=== PATIENT | female | born 1980 | race African-American/Black ===

== ENCOUNTER 2016-09-06 22:39 | Emergency (ER) | payer OTHER ==
[~2016-09-06] VITALS: Ht 180.3 cm; Wt 124.7 kg
[2016-09-06 22:42] VITALS: BP 139/72
--- NOTE | 2016-09-06 23:02 | NUR ---
PT TAKEN TO OF2
--- NOTE | 2016-09-06 23:39 | NUR ---
Dr. Simpson evaluating patient
[2016-09-06] MEDS: KETOROLAC 60 MG/2 ML VIAL IM ONE (23:49)
--- NOTE | 2016-09-06 23:53 | NUR ---
PT TAKEN TO XRAY
--- NOTE | 2016-09-07 00:07 | NUR ---
PT RETURN FROM XRAY
[2016-09-07] MEDS: fentaNYL 0.05 MG/ML VIAL IM ONE (00:29)
[2016-09-07 00:50] VITALS: BP 127/63
--- NOTE | 2016-09-07 00:50 | NUR ---
Patient discharged with v/s stable. Written and verbal after care instructions given and explained. Patient alert, oriented and verbalized understanding of instructions. Ambulatory with steady gait. All questions addressed prior to discharge. ID band removed. Patient advised to follow up with PMD. Rx of Motrin, Prednisone, and Tramadol given. Patient educated on indication of medication including possible reaction and side effects. Opportunity to ask questions provided and answered.
== END 2016-09-07 00:50 | disposition home or self-care (01) ==
LOC: MED 22:39
DX: M54.5 Low back pain (principal)
CPT/HCPCS: 72100; 81025; 96372; 99284; J1885; J3010

== ENCOUNTER 2018-03-23 09:28 | Emergency (ER) | payer OTHER ==
[~2018-03-23] VITALS: Ht 180.3 cm; Wt 122.5 kg
--- NOTE | 2018-03-23 09:36 | NUR ---
PT AMBULATES TO BED 7
[2018-03-23 09:39] VITALS: BP 120/97
--- NOTE | 2018-03-23 09:47 | NUR ---
C/O NON PRODUCTIVE COUGH, UPPER BACK PAIN, FATIGUE X 1 WK. NO ACCESSORY MUSCLE USE NOTED. PATIENT STATES PAIN OF 6/10 AT THIS TIME. PATIENT POSITIONED FOR COMFORT; HOB ELEVATED; BEDRAILS UP X2; BED DOWN. ER MD MADE AWARE OF PT STATUS.
[2018-03-23] MEDS ORDERED: ALBUTEROL SULFATE/IPRATROPIU 3 ML SOL IH ONE (09:50)
[2018-03-23] MEDS ORDERED: cefTRIAXone 1,000 MG in LIDOCAINE 1% ***ER ONLY *** 2.1 ML IM ONE (09:50)
--- NOTE | 2018-03-23 09:52 | NUR ---
Patient being evaluated by DR TORRES at bedside.
--- NOTE | 2018-03-23 10:01 | NUR ---
RT AT BEDSIDE
[2018-03-23] MEDS ORDERED: KETOROLAC 60 MG/2 ML VIAL IM ONE (10:05)
[2018-03-23] MEDS ORDERED: cefTRIAXone 1,000 MG VIAL ONE (10:13)
[2018-03-23] MEDS ORDERED: LIDOCAINE MPF 1% 5mL VIAL ONE (10:14)
[2018-03-23 10:42] VITALS: BP 120/90
--- NOTE | 2018-03-23 10:42 | NUR ---
Patient discharged with v/s stable. Written and verbal after care instructions given and explained. Patient alert, oriented and verbalized understanding of instructions. Ambulatory with steady gait. All questions addressed prior to discharge. ID band removed. Patient advised to follow up with PMD. Rx of tamiflu, motrin, promethazine & azithromycin given. Patient educated on indication of medication including possible reaction and side effects. Opportunity to ask questions provided and answered.
== END 2018-03-23 10:42 | disposition home or self-care (01) ==
LOC: MED 09:28
DX: J11.1 Influenza due to unidentified influenza virus with other respiratory manifestations (principal); I10 Essential (primary) hypertension; E11.9 Type 2 diabetes mellitus without complications
CPT/HCPCS: 36415; 81025; 87804; 94640; 96372; 99283; J0696; J1885; J2001; J7620

== ENCOUNTER 2018-06-22 23:21 | Emergency (ER) | payer OTHER ==
[~2018-06-22] VITALS: Ht 180.3 cm; Wt 104.3 kg
--- NOTE | 2018-06-22 23:25 | NUR ---
TO BED # 11 AMBULATORY
[2018-06-22 23:26] VITALS: BP 143/90
--- NOTE | 2018-06-22 23:35 | NUR ---
PT BIB SELF C/O LEFT ANKLE PAIN. PT STATES STANDING A LOT TODAY, WHEN SHE TOOK OF THE BRACE AROUND HER LEFT ANKLE SHE FELT HER ANKLE "GIVE OUT", PT STATES SHE BROKE HER LEFT ANKLE 1 YEAR AGO AND WEARS A BRACE DAILY. PT STATES SWELLING AROUND ANKLE IS CHRONIC. PT STATES 4/10 ACHING PAIN TO SITE, RADIATES UP LEFT LEG. --NOTEABLE SWELLING TO LEFT ANKLE, NO REDNESS OR DISCHARGE, CAP REFIL <2. +AROM OF EXTREMITY. PEDIAL PULSES WNL BL. PT AMBULATES W/ STEADY GATE. DENIES FALL, INJURY OR TRAUMA THIS TIME. PMH: HTN
--- NOTE | 2018-06-22 23:36 | NUR ---
X-Ray at bedside.
--- NOTE | 2018-06-22 23:47 | NUR ---
DR. WU AT BEDSIDE FOR EVALUATION.
[2018-06-23 00:03] VITALS: BP 143/90
--- NOTE | 2018-06-23 00:04 | NUR ---
Patient discharged with v/s stable. Written and verbal after care instructions given and explained. Patient verbalized understanding. Ambulatory with crutches . All questions addressed prior to discharge. Advised to follow up with PMD.
== END 2018-06-23 00:04 | disposition home or self-care (01) ==
LOC: MED 23:21
DX: M25.572 Pain in left ankle and joints of left foot (principal); I10 Essential (primary) hypertension
CPT/HCPCS: 73610; 99283; Q0092

== ENCOUNTER 2020-04-18 03:20 | Emergency (ER) | payer OTHER ==
[~2020-04-18] VITALS: Ht 180.3 cm; Wt 117.9 kg
[2020-04-18 03:23] VITALS: BP 123/90
--- NOTE | 2020-04-18 03:23 | NUR ---
TO BED AMBULATORY
--- NOTE | 2020-04-18 03:32 | NUR ---
DR. CASAS AT BEDSIDE FOR EXAM
[2020-04-18] MEDS ORDERED: DEXAMETHASONE 4 MG/ML VIAL IM ONE (04:00)
[2020-04-18] MEDS ORDERED: TETRACAINE HCL/PF 0.5% OPTH 4 ML BTL OP ONE (04:00)
[2020-04-18] MEDS ORDERED: guaiFENesin/CODEINE 100/10MG 5 ML UDC PO ONE (04:00)
[2020-04-18] MEDS ORDERED: ERYTHROMYCIN 0.5% OPTH OINT 1 GM TUBE OP ONE (04:00)
[2020-04-18] MEDS ORDERED: ALBUTEROL HFA MDI 90 MCG/ACTUATION 8 GM INH ONE (04:00)
--- NOTE | 2020-04-18 04:45 | NUR ---
SWABS OBTAINED AND SENT TO LAB
[2020-04-18] MEDS ORDERED: ALBU0.0912 IH (05:37)
[2020-04-18] MEDS ORDERED: ERYT5OIN51 OP (05:37)
[2020-04-18 05:40] VITALS: BP 123/90
--- NOTE | 2020-04-18 05:40 | NUR ---
Patient discharged with v/s stable. Written and verbal after care instructions given and explained. Patient alert, oriented and verbalized understanding of instructions. Ambulatory with steady gait. All questions addressed prior to discharge. ID band removed. Patient advised to follow up with PMD. Rx of ALBUTEROL INHALER, ERYTHROMYCIN given. Patient educated on indication of medication including possible reaction and side effects. Opportunity to ask questions provided and answered.
== END 2020-04-18 05:40 | disposition home or self-care (01) ==
LOC: MED 03:20
DX: H10.89 Other conjunctivitis (principal); J03.80 Acute tonsillitis due to other specified organisms; R05 Cough; I10 Essential (primary) hypertension; Z20.822 Contact with and (suspected) exposure to COVID-19
CPT/HCPCS: 71045; 87081; 87426; 96372; 99284; J1100; J3535

== ENCOUNTER 2020-12-29 02:45 | Emergency (ER) | payer OTHER ==
[~2020-12-29] VITALS: Ht 180.3 cm; Wt 122.5 kg
[~2020-12-29 02:45] MED LIST: ALBU0.0912 IH; ERYT5OIN51 OP
[2020-12-29 02:53] VITALS: BP 137/95
--- NOTE | 2020-12-29 03:01 | NUR ---
PT AMBULATED TO BED 02.
--- NOTE | 2020-12-29 03:08 | NUR ---
40 YO/F BIB SELF W C/O R HAND/WRIST DOG BITE AT 1900. PT REPORTS SHE WAS WALKING HER DOG WHEN A PITBUL APPROACHED THEM AND BIT HER HAND/WRIST. PT REPORTS APPLYING HYDROGEN PEROXIDE AND NEOSPORIN. PT DENIES ANY PAIN, REPORTS HAND FEELS TIGHT. DENIES N/V/D, FEVERS OR CHILLS. PT PRESENT W PUNCUTRE/ BITE MARL TO HAND AND WRIST, BLEEDING CONTROLLED. + ROM, + SENSATION, CAP REFIL <2 SEC, +2 RADIAL PULSES. UNKNOWN LAST TDAP VACCINE. PT SITTIN GIN BED, HOB ELEVATED, BED LOCKED IN LOWEST POSITION. BREATHING EVEN AND UNLABORED. NAD NOTED, WILL CONTINUE TO MONITOR. PMH:HTN, ASTHMA NKA
[2020-12-29] MEDS ORDERED: cefTRIAXone 1,000 MG in LIDOCAINE MPF 1% 2.1 ML IM ONE (03:10)
[2020-12-29] MEDS ORDERED: cefTRIAXone 1,000 MG VIAL ONE (03:28)
[2020-12-29] MEDS ORDERED: LIDOCAINE MPF 1% 5 ML ONE (03:30)
--- NOTE | 2020-12-29 04:00 | NUR ---
[facility] INCIDENT REPORT FAXED TO [facility]
[2020-12-29 04:17] VITALS: BP 137/95
--- NOTE | 2020-12-29 04:17 | NUR ---
Patient discharged with v/s stable. Written and verbal after care instructions given and explained. Patient alert, oriented and verbalized understanding of instructions. Ambulatory with steady gait. All questions addressed prior to discharge. ID band removed. Patient advised to follow up with PMD. Rx of AMOXICILLIN- POTASSIUM CLAV given. Patient educated on indication of medication including possible reaction and side effects. Opportunity to ask questions provided and answered. DISCHARGE COMPLETED BY EKTA CARNEY.
[2020-12-29] MEDS ORDERED: AMOX-1000 PO (04:19)
== END 2020-12-29 04:17 | disposition home or self-care (01) ==
LOC: MED 02:45
DX: S61.451A Open bite of right hand, initial encounter (principal); I10 Essential (primary) hypertension; Z79.899 Other long term (current) drug therapy; W54.0XXA Bitten by dog, initial encounter; Y93.89 Activity, other specified; Y92.89 Other specified places as the place of occurrence of the external cause; Y99.8 Other external cause status
CPT/HCPCS: 90471; 90715; 96372; 99284; J0696; J2001